=== PATIENT | female | born 1965 | race Caucasian/White ===

== ENCOUNTER 2018-03-06 06:15 | Day surgery (SDC) | payer OTHER ==
[2018-03-06] MEDS ORDERED: SOD CHLORIDE 0.9% 1,000 ML IV (07:00)
[2018-03-06] MEDS: CEFAZOLIN 2 GM/50 ML (PMX) 50 ML IVPB (08:15)
[2018-03-06] MEDS: BUPIVACAINE 0.25% (MPF) 30 ML INJ (08:32)
[2018-03-06] MEDS ORDERED: LIDOCAINE 2% (SDV) 5 ML INJ (08:50)
[2018-03-06] MEDS ORDERED: CEFAZOLIN 1 GM INJ (08:50)
[2018-03-06] MEDS ORDERED: PROPOFOL 60 ML (08:50)
[2018-03-06] MEDS ORDERED: HYDROCODONE/APAP (5/325) TAB PO (09:00)
[2018-03-06] MEDS: ONDANSETRON 4 MG INJ IV (09:11)
[2018-03-06] MEDS: FENTAnyl 50 MCG/ML VIAL IV (09:11)
[2018-03-06] MEDS: KETOROLAC 30 MG INJ IV (09:12)
[2018-03-06] MEDS ORDERED: MEPERIDINE 25 MG INJ IV (09:30)
[2018-03-06] MEDS ORDERED: FENTAnyl 50 MCG/ML VIAL IV ×2 (09:30)
[2018-03-06] MEDS ORDERED: EPHEDrine SULFATE 50 MG/5 ML SYG IV (09:30)
[2018-03-06] MEDS ORDERED: OXYCODONE/ACETAMINOPHEN (5/325) TAB PO ×2 (09:30)
[2018-03-06] MEDS ORDERED: DIPHENHYDRAMINE 50 MG INJ IV (09:30)
[2018-03-06] MEDS ORDERED: hydrALAzine 20 MG INJ IV (09:30)
[2018-03-06] MEDS ORDERED: LABETALOL HCL 20MG INJ IV (09:30)
[2018-03-06] MEDS ORDERED: ALBUTEROL 0.083% (NEB) 2.5 MG/3 ML AMP HHN (09:30)
[2018-03-06] MEDS ORDERED: morphine (1 MG/ML) 10ML SYRINGE IV ×2 (09:30)
== END 2018-03-06 11:20 | disposition home or self-care (01) ==
LOC: SDS 06:15
DX: D17.23 Benign lipomatous neoplasm of skin and subcutaneous tissue of right leg (principal); D17.1 Benign lipomatous neoplasm of skin and subcutaneous tissue of trunk; E66.9 Obesity, unspecified; Z68.30 Body mass index [BMI] 30.0-30.9, adult
CPT/HCPCS: 14001; 88307